=== PATIENT | male | born 1940 | race Caucasian/White ===

== ENCOUNTER → 2016-12-31 | Outpatient (CLI) | payer OTHER ==
[2016-12-31 12:22] LABS: LDL CHOLESTEROL,CALCULATED 76.6 mg/dL
== END ==
LOC: MOB LAB 10:12
DX: E78.5 Hyperlipidemia, unspecified (principal); Z72.0 Tobacco use
CPT/HCPCS: 36415; 80061

== ENCOUNTER 2017-02-12 10:30 | Inpatient (IN) | payer OTHER ==
[2017-02-12] MEDS ORDERED: MORPHINE SULFATE 4 MG/1 ML IVP ONE (10:55)
[2017-02-12] MEDS ORDERED: ONDANSETRON 4 MG/2 ML VIAL IVP ONE ×3 (10:55→12:30)
[2017-02-12] MEDS ORDERED: Sodium Chloride 0.9% 1,000 ML PRIMARY IV ONE (10:55)
--- NOTE | 2017-02-12 11:02 | PDOC ---
Gen Adult / Medical Screen HPI - General Chief Complaint: General Medical Stated Complaint: DIZZY, SHORT OF BREATH, RUQ PAIN Date Seen by Provider: 02/12/17 Time Seen by Provider: 10:57 Source: POSITIVE: Patient, Spouse Exam Limitations: POSITIVE: No limitations Nurse's Notes Reviewed & Considered: Yes - Indicators Temperature Between 95 and 101 Degrees: Yes Respirations Between 12 and 20: Yes Blood Pressure Between 100-165 (sys) and 60-100 (vallejo): Yes Pulse Range Between 60-105 (100 for age > 60 years): Yes Severe Pain (Greater than 5/10 Reported): No Chest or Abdominal Pain: Yes (chest pain radiating from epigastrium) Inability to Walk: No Pt Reports Active High Risk Cond. (TB/Hepatitis/HIV/Chemo): No Abnormal Mental Status: No - History of Present Illness Initial Comments: Patient comes in today with chief complaint of chest pain, shortness of breath, nausea, epigastric pain. His symptoms have been ongoing for approximately 2 weeks and progressively getting worse. 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 At this time he is 90% on 2 L nasal cannula. Denies any headache, he does have a cough, chest pain, and shortness of breath. He has epigastric pain with associated nausea but no vomiting. He denies any rashes. Denies any hematuria or dysuria. Body Location Affected: REPORTS: Chest, Abdomen Timing: REPORTS: Constant, Getting Worse Duration: >1 week Similar Symptoms Previously: No Recent Care Received: REPORTS: Denies Any Prior Injuries Related to Current Complaint?: No - Patient Home Medications Home Medications: Home Medications Calcium Carb/Vit D3/Minerals [Caltrate-600 With Vit D Tab] 1 each PO DAILY 09/17 Reubens-3 Fatty Acids/Fish Oil [Fish Oil 1,200 Mg Softgel] 1 each PO DAILY Aspirin [Adult Low Dose Aspirin Ec] 1 tab PO DAILY #30 tab 08/24/14 Multivit-Min/FA/Lycopene/Lut [Centrum Silver Tablet] 1 tab PO DAILY #30 tab Lisinopril 1 tab PO DAILY #90 tab 08/09/16 Pravastatin Sodium [Pravachol] 1 tab PO QD #30 tab 10/03/16 Carvedilol [Coreg] 1 tab PO BID #180 tab 01/27/17 Metformin HCl 1 tab PO BID #180 tab 01/27/17 Cyanocobalamin (Vitamin B-12) [B-12] 1,000 mcg PO DAILY 02/12/17 - Patient Allergies Allergies/Adverse Reactions: Allergies Allergy/AdvReac Type Severity Reaction Status Date / Time hydrocodone AdvReac Intermediate VOMITING Verified 02/12/17 10:40 Past Medical History - heen HEENT History: Denies History, Dentures/Partials Additional HEENT History: RIGHT EAR TUBE 2 YEARS AGO Cardiovascular History: Arrhythmia Additional Cardiovasular History: OCCASIONAL PVC'S Respiratory History: Denies History Gastrointestinal History: GERD Genitourinary History: Denies History Endocrine History: Denies History Musculoskeletal History: Back Injury Prosthesis or Implant: No Additional Musculoskeletal History: FEET NUMB AND PAINFULL "ALL THE TIME" NECK INJURY 30 YEARS AGO HAS SOME NECK ACHE AT TIMES. Neurological History: Denies History Blood Disorders: Denies History Psychiatric History: Denies History History of Sexually Transmitted Diseases: No Cancer History: Denies History History of Other Communicable Diseases: No Alcohol Use: None Substance Use Type: None Anesthesia Reactions: No Malignant Hyperthermia: No ROS - Limitations ROS Limitations: No Limitations Constitution: REPORTS: Fever (Low-grade tactile) Cardiovascular: REPORTS: Chest Pain Respiratory: REPORTS: Cough Non Productive, Hurts To Breathe, Shortness Of Breath Neurological: REPORTS: Dizziness Gastrointestinal: REPORTS: Abdominal Pain, Nausea Endocrine: REPORTS: Denies Symptoms Musculoskeletal: REPORTS: Muscle Aches Genitourinary: REPORTS: Denies Symptoms Eyes: REPORTS: Denies Symptoms ENT: REPORTS: Denies Symptoms Skin: REPORTS: Denies Skin Symptoms Lympathic: REPORTS: Denies Lympathic Symptoms Immunologic: POSITIVE: Denies Symptoms Psychiatric: POSITIVE: Denies Psych Symptoms Gen Adult/Medical Screen Exam - General Appearance General Appearance: POSITIVE: Alert, Cooperative, No Acute Distress, No Evidence of Trauma - HEENT HEENT: POSITIVE: Head Inspection Nml, Eyes Inspection Nml, Ears Inspection Nml, Nose Inspection Nml, Oral/Dental Inspect. Nml, Pharynx Inspect. Nml, PERRL, EOMI - Pupils Pupil Size: 4 mm: Bilateral - Neck Neck: POSITIVE: Normal Inspection, Thyroid Normal - Respiratory Respiratory: POSITIVE: No Respiratory Distress, Breath Sounds Normal, Chest Non- Tender - Cardiovascular Cardiovascular: POSITIVE: Regular Rate & Rhythm, No Murmur, No Gallop, PMI Normal Peripheral Pulses: Radial (L): 2+ - Abdomen Abdomen: Soft: (All Quadrants), Normal Bowel Sounds: (All Quadrants), No Splenomegaly: (All Quadrants), No Hepatomegaly: (All Quadrants), Tenderness Noted: (RUQ), (LUQ) - Back Back: POSITIVE: Normal Inspection - Neurological / Psychological Mental Status: POSITIVE: Mood Normal, Affect Normal Orientation: POSITIVE: Oriented x 3 - Skin Skin: POSITIVE: Normal Color, Warm, Dry, No Rash - Extremities Extremity: Non-Tender: (All Extremities), Normal ROM: (All Extremities), Edema / Swelling: (RLE), (LLE) (+2 pitting edema present bilaterally in his lower extremities) Procedures - Laceration/Wound Repair Did patient have a laceration repair: No Gen Adlt/Medical Scrn Progress - Results Reviewed by me Xrays/CTs/US Reviewed by me: Yes Discussed with Radiologist: Yes Lab Results Reviewed: Yes Lab Results:: Laboratory Results 02/12/17 02/12/17 02/12/17 Range/Units 10:47 10:57 12:07 WBC 8.35 (4.8-10.8) 10^3/uL RBC 5.02 (4.70-6.10) 10^6/uL Hgb 15.1 (14.0-18.0) g/dL Hct 45.3 (42.0-52.0) % MCV 90.2 H (80-90) FL MCH 30.1 (27-31) PG MCHC 33.3 (33-37) g/dL RDW Std Deviation 49.4 (39-50) fL RDW Coeff of Chandu 15.4 H (11.5-14.5) % Plt Count 195 (140-350) 10*3/uL MPV 10.6 (7.4-12.2) FL Immature Gran % (Auto) 0.1 (0-5) % Neut % (Auto) 68.4 (50-80) % Lymph % (Auto) 24.1 (10-50) % [place] % (Auto) 5.9 (5-15) % Eos % (Auto) 1.0 (0-8) % Baso % (Auto) 0.5 (0-1) % Immature Gran # (Auto) 0.01 10*3/UL Neut # (Auto) 5.72 10*3/UL Lymph # (Auto) 2.01 10*3/uL [place] # (Auto) 0.49 (0.3-0.8) 10*3/UL Eos # (Auto) 0.08 10*3/UL Baso # (Auto) 0.04 10*3/UL WBC Morphology Comment Normal morphology (NORM) Plt Morphology Comment Normal morphology (NORM) RBC Morph Comment Normal morphology (NORM) PT 10.8 (9.7-11.4) secs INR 1.05 (0.00-5.90) N/A Sodium 138 (135-145) meq/L Potassium 4.7 (3.8-5.2) meq/L Chloride 100 (98-112) meq/L Carbon Dioxide 25 (23-33) meq/L Anion Gap 13 (5-20) BUN 33 H (7-22) mg/dL Creatinine 1.3 (0.70-1.50) mg/dL Estimated GFR (>60 ml/min/1.73m(2)) BUN/Creatinine Ratio 25.38 H (6-20) Glucose 165 H (78-110) mg/dL Calculated Osmolality 296.0 H (267-292) mOsm/kg Calcium 9.5 (8.7-10.7) mg/dL Magnesium 1.9 (1.6-2.4) mg/dL Total Bilirubin 0.5 (0.3-1.2) mg/dL AST 41 (21-57) IU/L ALT 43 (21-72) IU/L Alkaline Phosphatase 54 (38-126) IU/L Total Creatine Kinase 49 L (55-170) IU/L Troponin I 0.054 H 0.053 H (< 0.040) ng/mL C-Reactive Protein 2.2 H (0.0-0.9) mg/dL Total Protein 7.1 (6.1-8.0) g/dL Albumin 4.2 (3.5-4.8) g/dL Globulin 2.9 (2.50-4.10) g/dL Albumin/Globulin Ratio 1.40 (1.3-2.0) mg/g TSH 1.44 (0.2700-4.2000) uIU/mL EKG Interpretation:: POSITIVE: Normal Sinus Rhythm, Abnormal EKG (Q waves in leads 2, 3, aVF.) - Patient's Progress Pain Medication Addressed: POSITIVE: Yes Re-Examine Time: 13:49 Status: POSITIVE: Improved MDM / ED Course: Patient was examined, an IV started, blood drawn and sent to the lab for studies , radiographic examinations were obtained. Patient was taken to radiology and as he was laid down on the CT gurney he developed diaphoresis, abdominal discomfort, and vomiting. He vomited copious amounts. Repeat EKG and troponins were obtained at that time EKG showed no change from previous, troponin was 0.053. Findings: CT scan of his chest shows bilateral PE present. Troponin is bumped, consistent with troponin leak from pulmonary embolism. Next Assessment: Bilateral pulmonary embolisms. Elevated troponin indicating possible heart strain. Plan: Admission, Eliquis for anticoagulation, consider echocardiogram to evaluate for heart strain. - Consult Consult (If Yes, Name of Consulting MD & Time Called): Yes (Dr. Pressley, 13:44 Dr. Angela Matthews([facility]) advises no TPA.) Consulting MD will see pt:: POSITIVE: [facility] Admit Counseled: POSITIVE: Patient, Family, RE: Lab Results, RE: Radiology Results, RE : DX Patient Care Time - Estimated PCT Patient Care Time (In Minutes): 45 Vital Signs - Recent Vital Signs Vital Signs: Vital Signs (Last 8 hours) Temp Pulse Resp BP Pulse Ox 02/12/17 10:31 96.8 F 79 20 110/74 90 - VS Reviewed Vital Signs Reviewed: Yes Discharge Clinical Impression: Pulmonary embolism Discharge Disposition: Admit to Inpatient Condition: Stable Follow Up With: EDILBERTO BAUGH [Primary Care Provider] - Date Decision to Admit to Inpatient: 02/12/17 Time Decision to Admit to Inpatient: 13:44
[2017-02-12 11:04] LABS: BASOPHILS # (AUTO) 0.04 10*3/UL; BASOPHILS % (AUTO) 0.5 % (0-1); EOSINOPHILS # (AUTO) 0.08 10*3/UL; HEMATOCRIT 45.3 % (42.0-52.0); HEMOGLOBIN 15.1 g/dL (14.0-18.0); LYMPHOCYTES # (AUTO) 2.01 10*3/uL; MEAN CORPUSCULAR HEMOGLOBIN 30.1 PG (27-31); MEAN CORPUSCULAR HGB CONC 33.3 g/dL (33-37); MEAN CORPUSCULAR VOLUME 90.2 FL (80-90); MEAN PLATELET VOLUME 10.6 FL (7.4-12.2); MONOCYTES # (AUTO) 0.49 10*3/UL (0.3-0.8); MONOCYTES % (AUTO) 5.9 % (5-15); NEUTROPHILS # (AUTO) 5.72 10*3/UL; NEUTROPHILS % (AUTO) 68.4 % (50-80); RED BLOOD COUNT 5.02 10^6/uL (4.70-6.10)
[2017-02-12 11:05] LABS: PLATELET MORPHOLOGY COMMENT NORMAL MORPHOLOGY (NORM); RBC MORPHOLOGY COMMENT NORMAL MORPHOLOGY (NORM); WBC MORPHOLOGY COMMENT NORMAL MORPHOLOGY (NORM)
[2017-02-12 11:13] LABS: BUN/CREATININE RATIO 25.38 (6-20); C-REACTIVE PROTEIN 2.2 mg/dL (0.0-0.9); CALCIUM 9.5 mg/dL (8.7-10.7); MAGNESIUM 1.9 mg/dL (1.6-2.4); SERUM ALBUMIN 4.2 g/dL (3.5-4.8)
--- NOTE | 2017-02-12 11:57 | EKG ---
[address] [address] Measurements Intervals [place] Rate: 70 P: 69 MD: 174 QRS: -82 QRSD: 95 T: 48 QT: 396 QTc: 416 Interpretive Statements SINUS RHYTHM INDETERMINATE AXIS POSSIBLE INFERIOR MYOCARDIAL INFARCTION [borderline for 40+ ms Q WAVE AND/OR ST/T ABNORMALITY IN II/aVF], PROBABLY OLD No previous ECG available for comparison Electronically Signed On 02-13-17 08:08:54 MDT by Dameon Bird MD [id number]
[2017-02-12] MEDS ORDERED: Prochlorperazine Edisylate Inj 10mg/2ml vial IVP ONE (12:30)
--- NOTE | 2017-02-12 13:42 | EKG ---
[address] [place] [address] Measurements Intervals [place] Rate: 70 P: 68 [place]: 178 QRS: 254 QRSD: 93 T: 47 QT: 389 QTc: 410 Interpretive Statements SINUS RHYTHM INDETERMINATE AXIS LEFT POSTERIOR FASCICULAR BLOCK [QRS AXIS > 109, INFERIOR Q] POSSIBLE INFERIOR MYOCARDIAL INFARCTION [35 ms Q WAVE IN II/aVF], PROBABLY OLD Compared to ECG 02/12/2017 10:55:56 Left posterior fascicular block now present Myocardial infarct finding still present Electronically Signed On 02-13-17 08:09:44 MDT by Dameon Bird MD [id number]
--- NOTE | 2017-02-12 13:49 | DI ---
CT ANGIOGRAM OF THE CHEST, 02/12/2017 10:55 AM : Clinical History: Shortness of breath. Previous Exam: None at this facility. Scans are performed from the base of the neck to the lower lung bases following IV administration of 60 mL of Isovue 300. Proprietary automated bolus tracking software was used to verify the timing of t he injection. The base of the neck and thoracic inlet are normal. There are no abnormal axillary, supraclavicular, mediastinal, or hilar nodes. The heart is normal. Calcifications are present in the proximal third of the LAD in the proximal portions of the left circumflex artery and the right coronary artery. There is no pulmonary arterial hypertension, but there are clots present in the distal portion of the right pulmonary artery with extension into branches to the right lower lobe. Clots are also present in bra nches to the right middle lobe and the right upper lobe. On the left side, clots are present in branc hes to the left lower lobe in the lingular segment. There are no pleural-based infiltrates to indicat e this patient has a pulmonary infarct. There are no pleural effusions or pulmonary nodules. READIN. There is acute pulmonary embolism involving all lobes in the right lung and in the lingular segme nt and lower lobe in the left lung. There is no pulmonary arterial hypertension and there are no pulm onary infarcts. 2. Coronary artery disease manifested by calcifications in the LAD, left circumflex artery, and the right coronary artery. Comment: Prior to scanning, this patient became quite nauseated and diaphoretic and experienced vomit ing. The emergency room physician responded to the CT scan room and evaluated the patient before this study and the followup CT scan of the abdomen and pelvis were performed.
--- NOTE | 2017-02-12 14:00 | DI ---
CT ABDOMEN SCAN WITH IV CONTRAST, 02/12/2017 10:55 AM : Clinical History: Epigastric pain. Previous Exam: None at this facility. Scans are performed from the lower lung bases through the liver and kidneys with IV contrast. This is the same bolus of contrast used for the CT angiogram of the chest. The lung bases are clear. The liver is normal. The gallbladder is grossly normal. There is a hiatal h ernia. There is no abnormality of the spleen, pancreas, and adrenal glands. Both kidneys are normal i n size, shape, position and contour. There is no hydronephrosis or hydroureter. No renal or ureteral calculi are present. There are no abnormal retrocrural or periaortic nodes. No ascites is present. READING: Except for the hiatal hernia, the CT abdomen scan is normal. CT PELVIS SCAN WITH IV CONTRAST, 02/12/2017 10:55 AM: Clinical History: See above. Previous Exam: None at this facility. Scans are performed from just superior to the umbilicus to the symphysis pubis with IV contrast. This is the same bolus of contrast used for the CT scans of the chest and abdomen. Scans through the lower abdomen and pelvis show no masses or abnormal fluid collections. There is no adenopathy. The appendix is normal. The small bowel, terminal ileum, and ileocecal valve are normal. The colon is also normal. There are no hernias. This patient has a fusiform infrarenal aortic aneurys m that has been treated with percutaneously inserted aortic and common iliac stents. The aortic stent has a mural thrombus within it. Both common iliac stents are patent and the proximal portion of the right common iliac stent has a small mural thrombus. There is a small mural thrombus in the midportio n of the left common iliac stent. There is marked prostatic enlargement. READIN. Status post percutaneously placed aortobiiliac stents. 2. Marked prostatic hypertrophy.
[2017-02-12] MEDS: Apixaban 5 MG TABLET PO ONE ×2 (14:15→14:50)
[2017-02-12] MEDS ORDERED: NORMAL SALINE 10 ML SYRINGE FLUSH IVP PRN (15:34)
[2017-02-12] MEDS ORDERED: LIDOCAINE W/ SODIUM BICARB 0.5 ML SYR SUBD PRN (15:34)
[2017-02-12] MEDS ORDERED: ONDANSETRON 4 MG/2 ML VIAL IVP PRN (15:34)
[2017-02-12] MEDS ORDERED: CALCIUM CARBONATE 500 MG (TUMS) CHEWABLE TABLET PO PRN (15:34)
[2017-02-12] MEDS ORDERED: ACETAMINOPHEN 325 MG TABLET PO PRN (15:34)
[2017-02-12] MEDS: NICOTINE 14 MG /DAY PATCH TRANSDERM SCH (19:06)
--- NOTE | 2017-02-12 19:41 | PDOC ---
History and Physical - History of Present Illness Date and Time of Service: 02/12/2017, 1630 Chief Complaint: shortness of breath History of Present Illness: This is a 76 YO male that has COPD, vascular disease, and is a smoker, who comes in with shortness of breath, starting about two weeks ago. No fever or chills. No chest pain, but patient did complain of soreness. The patient has never had this type of shortness of breath. He is not normally on oxygen but was found to be hypoxic in the urgent care or open access clinic today and in the emergency room. Initial troponin was slightly elevated, and a CT scan of the chest was positive for bilateral pulmonary emboli. The patient has not had any recent surgery. He has had colonoscopies in the past but apparently has not had one for some time. His PSA was screen last year and it was normal. No interventions were tried prior to coming to the hospital for evaluation although his noted that she tried to get him in over the last 3 days with prompts. The patient states that oxygen has helped the shortness of breath. The patient also developed some epigastric or midepigastric pain. A CT scan of the abdomen and pelvis was nonrevealing of any pathology. Past Medical History Medical History: 1. COPD. 2. Peripheral vascular disease status post aortobiiliac graft placement. 3. GERD. 4. Hypertension. 5. Diabetes mellitus type II, seemingly well controlled. 6. BPH with markedly enlarged prostate. 7. Hyperlipidemia Surgical History: 1. Atrhoscopic knee surgery bilaterally. 2. Right olecranon bursectomy several years ago, with scar tissue noted on exam. 3. Tonsillectomy at age 8. 4. Aortobiiliac graft placement (endovascular repair) Pertinent Family History: Significant for heart disease and for diabetes. Past Social History: for over 40 years. Had 4 children and 2 stepchildren. All are described as healthy. Retired and lives here in [place] with his . Does not drink alcohol, but does smoke. He states he's cut back on his smoking amount. Tobacco Use: Current Every Day Smoker Substance Use Type: None Alcohol Use: None Medication / Allergies Home Medications: Home Medications Medication Instructions Recorded Confirmed Type Calcium Carb/Vit D3/Minerals 1 each PO DAILY 09/17/11 02/12/17 History [Caltrate-600 With Vit D Tab] [place]-3 Fatty Acids/Fish Oil [Fish 1 each PO DAILY 05/17/13 02/12/17 History Oil 1,200 Mg Softgel] Aspirin [Adult Low Dose Aspirin Ec] 1 tab PO DAILY #30 tab 08/24/14 02/12/17 Clinic Multivit-Min/FA/Lycopene/Lut 1 tab PO DAILY #30 tab 08/24/14 02/12/17 Clinic [Centrum Silver Tablet] Lisinopril 1 tab PO DAILY #90 tab 08/09/16 02/12/17 Clinic Pravastatin Sodium [Pravachol] 1 tab PO QD #30 tab 10/03/16 02/12/17 Clinic Carvedilol [Coreg] 1 tab PO BID #180 tab 01/27/17 02/12/17 Clinic Metformin HCl 1 tab PO BID #180 tab 01/27/17 02/12/17 Clinic Cyanocobalamin (Vitamin B-12) 1,000 mcg PO DAILY 02/12/17 02/12/17 History [B-12] Allergies/Adverse Reactions: Allergies Allergy/AdvReac Type Severity Reaction Status Date / Time hydrocodone AdvReac Intermediate VOMITING Verified 02/12/17 19:05 morphine AdvReac Intermediate VOMITING Verified 02/12/17 19:05 Review of Systems - Review of Systems All Systems: Reviewed & No Additional Complaints Except as Stated (I did a 12 point review systems and it was negative other than that discussed in the history of present illness and that below.) - Constitutional Constitutional: REPORTS: Fatigue, Malaise, Weakness (Has felt some weakness and fatigue over the past couple of weeks with the shortness of breath.) - Cardiovascular Cardiovascular: REPORTS: Negative System Review - Gastrointestinal Gastrointestinal / Abdominal: REPORTS: Abdominal Pain (Epigastric) - Genitourinary Genitourinary: REPORTS: Hesitant Stream, Decreased Stream - Musculoskeletal Musculoskeletal: REPORTS: Other (Joint pains on occasion.) - Hematlogic / Lymphatic Hematologic / Lymphatic: DENIES: Negative System Review, Easy Bleeding/Bruising , Swollen Glands, Sickle Cell, Thalassemia, Pallor, Orthostasis, History of Tranfusions, Lymphoma, Other, See HPI - Neurological Neurologic: DENIES: Negative System Review, Headache, Numbness/Paresthesia, Tremors, Weakness, Seizures, Head Trauma, LOC, Dizziness, Confusion, Memory Loss , Difficulty Walking, Incoordination, Other, See HPI Exam - Vitals Vital Signs: Vital Signs Vital Signs - Last Taken Temperature 97.2 F 02/12/17 20:27 Pulse Rate 66 02/12/17 20:27 Respiratory Rate 22 02/12/17 20:27 Blood Pressure 102/59 02/12/17 20:27 Pulse Ox 94 02/12/17 20:27 Currently on 2-3 L per nasal cannula. - General General Appearance: POSITIVE: No Acute Distress, Cooperative - Head Head Exam: POSITIVE: Normal Inspection, Normocephalic, Atraumatic - Eye Eye Exam: POSITIVE: No Scleral Icterus - ENT ENT Exam: POSITIVE: Mucous Membranes Moist - Neck Neck Exam: POSITIVE: Normal Inspection, No Tenderness, No Thyromegaly - Respiratory Respiratory Exam: POSITIVE: Breathing Non Labored, Normal to Percussion and Palpation, Coarse Breath Sounds - Cardiovascular Cardiovascular Exam: POSITIVE: RRR, No Murmur, No Clicks, No Gallops, No Rubs, No JVD - GI/Abdominal GI/Abdominal Exam: POSITIVE: Normal Bowel Sounds, Non Tender, Non Distended, Soft - Rectal Rectal Exam: POSITIVE: Deferred - External Exam: POSITIVE: Deferred Exam: POSITIVE: Deferred - Extremities Extremities Exam: POSITIVE: No Edema Present, No Cyanosis Present, Clubbing Present (In the digits) - Back Back Exam: POSITIVE: Normal Inspection, No CVA Tenderness - Neurological Neurological Exam: POSITIVE: Alert, Oriented x 3, No Facial Droop, Speech Intact / Clear, Moves All Extremities Equally - Psychiatric Psychiatric Exam: POSITIVE: Normal Affect, Normal Mood - Integumentary Integumentary Exam: POSITIVE: Normal Color, Warm, Dry, Intact - Central Line Examination Central Line Present on Admission: No Results - Labs CBC and BMP: 02/12/17 10:47 02/12/17 10:47 Labs - Last 24 Hours: Laboratory Results 02/12/17 02/12/17 02/12/17 Range/Units 10:47 10:57 12:07 WBC 8.35 (4.8-10.8) 10^3/uL RBC 5.02 (4.70-6.10) 10^6/uL Hgb 15.1 (14.0-18.0) g/dL Hct 45.3 (42.0-52.0) % MCV 90.2 H (80-90) FL MCH 30.1 (27-31) PG MCHC 33.3 (33-37) g/dL RDW Std Deviation 49.4 (39-50) fL RDW Coeff of Chandu 15.4 H (11.5-14.5) % Plt Count 195 (140-350) 10*3/uL MPV 10.6 (7.4-12.2) FL Immature Gran % (Auto) 0.1 (0-5) % Neut % (Auto) 68.4 (50-80) % Lymph % (Auto) 24.1 (10-50) % [place] % (Auto) 5.9 (5-15) % Eos % (Auto) 1.0 (0-8) % Baso % (Auto) 0.5 (0-1) % Immature Gran # (Auto) 0.01 10*3/UL Neut # (Auto) 5.72 10*3/UL Lymph # (Auto) 2.01 10*3/uL [place] # (Auto) 0.49 (0.3-0.8) 10*3/UL Eos # (Auto) 0.08 10*3/UL Baso # (Auto) 0.04 10*3/UL WBC Morphology Comment Normal morphology (NORM) Plt Morphology Comment Normal morphology (NORM) RBC Morph Comment Normal morphology (NORM) PT 10.8 (9.7-11.4) secs INR 1.05 (0.00-5.90) N/A Sodium 138 (135-145) meq/L Potassium 4.7 (3.8-5.2) meq/L Chloride 100 (98-112) meq/L Carbon Dioxide 25 (23-33) meq/L Anion Gap 13 (5-20) BUN 33 H (7-22) mg/dL Creatinine 1.3 (0.70-1.50) mg/dL Estimated GFR (>60 ml/min/1.73m(2)) BUN/Creatinine Ratio 25.38 H (6-20) Glucose 165 H (78-110) mg/dL Calculated Osmolality 296.0 H (267-292) mOsm/kg Calcium 9.5 (8.7-10.7) mg/dL Magnesium 1.9 (1.6-2.4) mg/dL Total Bilirubin 0.5 (0.3-1.2) mg/dL AST 41 (21-57) IU/L ALT 43 (21-72) IU/L Alkaline Phosphatase 54 (38-126) IU/L Total Creatine Kinase 49 L (55-170) IU/L Troponin I 0.054 H 0.053 H (< 0.040) ng/mL C-Reactive Protein 2.2 H (0.0-0.9) mg/dL Total Protein 7.1 (6.1-8.0) g/dL Albumin 4.2 (3.5-4.8) g/dL Globulin 2.9 (2.50-4.10) g/dL Albumin/Globulin Ratio 1.40 (1.3-2.0) mg/g TSH 1.44 (0.2700-4.2000) uIU/mL - EKG Data -: EKG Interpreted by Me Rate: Normal EKG Shows Normal: Sinus Rhythm - EKG Data EKG Interpretation: Nonspecific ST-T Wave Changes (Noted in V1 and V2) - Imaging Status: Image Reviewed by Me (I looked at the CT scan of the chest, abdomen, and pelvis. On the chest CT scan, there is pulmonary emboli, and I can pick out a few of those on the study on the right side. There is no infiltrate. The CT scan of the abdomen and pelvis showed an enlarged prostate. The endovascular graft was noted as well.) Assessment and Plan - Patient Problems (1) Pulmonary embolism Current Visit: Yes Status: Acute Qualifiers: Pulmonary embolism type: other Chronicity: acute Acute cor pulmonale presence: without acute cor pulmonale Qualified Description: Other acute pulmonary embolism without acute cor pulmonale Qualifier Code( s): (I26.99) Other pulmonary embolism without acute cor pulmonale (2) COPD (chronic obstructive pulmonary disease) Current Visit: Yes Status: Acute Qualifiers: COPD type: emphysema Emphysema type: unspecified Qualified Description: Pulmonary emphysema, unspecified emphysema type Qualifier Code(s): (J43.9) Emphysema, unspecified (3) GERD (gastroesophageal reflux disease) Current Visit: Yes Status: Acute Qualifiers: Esophagitis presence: without esophagitis Qualified Description: Gastroesophageal reflux disease without esophagitis Qualifier Code(s): ( K21.9) Gastro-esophageal reflux disease without esophagitis (4) Tobacco abuse Current Visit: Yes Status: Acute (5) Peripheral vascular disease Current Visit: Yes Status: Acute (6) Diabetes mellitus type II, controlled Current Visit: Yes Status: Acute Qualifiers: Diabetes mellitus complication status: without complication Diabetes mellitus senior care insulin use: without senior care use Qualified Description : Controlled type 2 diabetes mellitus without complication, without long-term current use of insulin Qualifier Code(s): (E11.9) Type 2 diabetes mellitus without complications (7) Hypertension Current Visit: Yes Status: Acute Qualifiers: Hypertension type: essential hypertension Qualified Description: Essential hypertension Qualifier Code(s): (I10) Essential (primary) hypertension (8) Hyperlipidemia Current Visit: Yes Status: Acute Qualifiers: Hyperlipidemia type: mixed hyperlipidemia Qualified Description: Mixed hyperlipidemia Qualifier Code(s): (E78.2) Mixed hyperlipidemia - Assessment / Plan Additional Assessment/Plan Details: The patient has a pulmonary embolism severity index score of 117, class for pulmonary emboli with 30 day mortality of 4-11.4%. He warrants inpatient monitoring, is mildly hypoxic and is requiring oxygen, and requires anticoagulant therapy. I discussed anticoagulant therapy with the patient and his , in depth regarding Coumadin versus Xarelto versus Eliquis, including all risks and benefits, risks being bleeding complications and possible pitfalls of not being able to reverse bleeding with antidotes, and benefits of treatment of blood clot , lack of drug interactions, and ease of therapy in terms of lab monitoring. Based on this discussion the patient chooses eliquis, and tomorrow we will call in prescription for this and Xarelto to find out which one his secondaries and/ or other coverages might be able to provide for. Oxygen as necessary. Home medications but hold metformin. Insulin for correction dose here in the hospital and hold metformin for at least 48-72 hours given the contrast CT scan study. Given the epigastric pain, presence of gallbladder, I will go ahead and get an ultrasound in the morning to look at this more carefully. The above plan was discussed with the patient in detail and both the patient and his agreed. Photo / Body Diagrams - Uploaded Photos Uploaded Photos:
[2017-02-12] MEDS: Apixaban 5 MG TABLET PO SCH (20:23)
[2017-02-12] MEDS: Pravastatin Tab 40 MG TAB PO SCH ×2 (20:23→20:27)
[2017-02-12] MEDS: CARVEDILOL 12.5 MG TABLET PO SCH (20:23)
[2017-02-12] MEDS ORDERED: DEXTROSE 31 GM GEL PO PRN (20:43)
[2017-02-12] MEDS ORDERED: Glucagon Inj Vial 1 MG/ML VIAL IM PRN (20:43)
[2017-02-12] MEDS ORDERED: DEXTROSE 50%-WATER SYRINGE 50 ML SYRINGE IVP PRN (20:43)
[2017-02-12] MEDS ORDERED: Insulin Sliding Scale Protocol SUBCUT PRN (20:43)
[2017-02-12] MEDS: Insulin Lispro Flexpen 300 UNIT/3 ML INSULN.PEN SUBCUT SCH (21:57)
[2017-02-13 05:08] LABS: BASOPHILS # (AUTO) 0.03 10*3/UL; BASOPHILS % (AUTO) 0.4 % (0-1); EOSINOPHILS # (AUTO) 0.13 10*3/UL; EOSINOPHILS % (AUTO) 1.6 % (0-8); HEMATOCRIT 41.9 % (42.0-52.0); HEMOGLOBIN 13.6 g/dL (14.0-18.0); MEAN CORPUSCULAR HGB CONC 32.5 g/dL (33-37); MEAN CORPUSCULAR VOLUME 92.5 FL (80-90); MEAN PLATELET VOLUME 11.1 FL (7.4-12.2); MONOCYTES # (AUTO) 0.57 10*3/UL (0.3-0.8); MONOCYTES % (AUTO) 6.9 % (5-15); NEUTROPHILS # (AUTO) 5.18 10*3/UL; RED BLOOD COUNT 4.53 10^6/uL (4.70-6.10)
[2017-02-13 05:13] LABS: PLATELET MORPHOLOGY COMMENT NORMAL MORPHOLOGY (NORM); RBC MORPHOLOGY COMMENT NORMAL MORPHOLOGY (NORM); WBC MORPHOLOGY COMMENT NORMAL MORPHOLOGY (NORM)
[2017-02-13 05:23] LABS: BUN/CREATININE RATIO 27.5 (6-20); CALCIUM 9.6 mg/dL (8.7-10.7)
[2017-02-13] MEDS: Insulin Lispro Flexpen 300 UNIT/3 ML INSULN.PEN SUBCUT SCH ×4 (07:19→20:31)
[2017-02-13] MEDS ORDERED: CYANOCOBALAMIN 1000 MCG PO SCH (09:00)
[2017-02-13] MEDS: CARVEDILOL 12.5 MG TABLET PO SCH ×2 (11:11→20:30)
[2017-02-13] MEDS: Apixaban 5 MG TABLET PO SCH ×2 (11:11→20:29)
[2017-02-13] MEDS: LISINOPRIL 20 MG TABLET PO SCH (11:11)
[2017-02-13] MEDS: ASPIRIN EC 81 MG TABLET PO SCH (11:11)
--- NOTE | 2017-02-13 11:37 | DI ---
GALLBLADDER AND LIVER ULTRASOUND, 02/13/2017 7:00 AM: Clinical History: Epigastric pain. Previous Exam: None at this facility. Technique: Scans are performed through the right upper quadrant in multiple projections. The patient was rolled from side to side and the gallbladder was balloted with the probe to facilitate visualizat ion of small gallstones. The gallbladder is well distended and has increased wall thickness at 4 mm, and the gallbladder wall is also echogenic. These findings are suspicious for acalculus chronic cholecystitis. There is no Mur phy's sign. The common bile duct measures 4 mm. The pancreas is obscured by bowel gas. There is a tra ce amount of fluid in [place] spell which and surrounding the liver. The visualized portions of the l iver, right kidney, and IVC are normal. The proximal abdominal aorta has a normal caliber but there i s an aneurysm of the distal abdominal aorta with presence of a vascular stent. The aneurysm has AP an d transverse diameters of about 45 mm at the level of the stent. Readin. No gallstones are visualized but there is thickening of the gallbladder wall with increased echog enicity suggesting chronic acalculus cholecystitis. If further evaluation is required, consider a HID A scan with fatty meal challenge. 2. There is a very small amount of ascites. 3. The liver, right kidney, and IVC are normal. There is an aortic aneurysm with a stent present.
--- NOTE | 2017-02-13 15:54 | PDOC(PROG) ---
Date and Time of Service: 02/13/2017, 1555 Interval History: no chest pain, less short of breath. desaturates when he is sleeping. Willing to do eliquis despite cost. no nausea or vomiting. Objective : Data - Labs CBC and BMP: 02/13/17 04:23 02/13/17 04:23 Labs - Last 24 Hours: Laboratory Results 02/13/17 Range/Units 04:23 WBC 8.23 (4.8-10.8) 10^3/uL RBC 4.53 L (4.70-6.10) 10^6/uL Hgb 13.6 L (14.0-18.0) g/dL Hct 41.9 L (42.0-52.0) % MCV 92.5 H (80-90) FL MCH 30.0 (27-31) PG MCHC 32.5 L (33-37) g/dL RDW Std Deviation 49.3 (39-50) fL RDW Coeff of Chandu 15.3 H (11.5-14.5) % Plt Count 200 (140-350) 10*3/uL MPV 11.1 (7.4-12.2) FL Immature Gran % (Auto) 0.2 (0-5) % Neut % (Auto) 63.0 (50-80) % Lymph % (Auto) 27.9 (10-50) % [place] % (Auto) 6.9 (5-15) % Eos % (Auto) 1.6 (0-8) % Baso % (Auto) 0.4 (0-1) % Immature Gran # (Auto) 0.02 10*3/UL Neut # (Auto) 5.18 10*3/UL Lymph # (Auto) 2.30 10*3/uL [place] # (Auto) 0.57 (0.3-0.8) 10*3/UL Eos # (Auto) 0.13 10*3/UL Baso # (Auto) 0.03 10*3/UL WBC Morphology Comment Normal morphology (NORM) Plt Morphology Comment Normal morphology (NORM) RBC Morph Comment Normal morphology (NORM) Sodium 137 (135-145) meq/L Potassium 5.0 (3.8-5.2) meq/L Chloride 102 (98-112) meq/L Carbon Dioxide 26 (23-33) meq/L Anion Gap 9 (5-20) BUN 33 H (7-22) mg/dL Creatinine 1.2 (0.70-1.50) mg/dL Estimated GFR (>60 ml/min/1.73m(2)) BUN/Creatinine Ratio 27.50 H (6-20) Glucose 123 H (78-110) mg/dL Calculated Osmolality 291.0 (267-292) mOsm/kg Calcium 9.6 (8.7-10.7) mg/dL Troponin I 0.040 (< 0.040) ng/mL - Imaging Ultrasound Status: Report Reviewed by Me (acalculous cholecystitis) Objective : Exam - General General Appearance: No Acute Distress, Cooperative Additional General Exam Details: Vital Signs - Last Taken Temperature 98.5 F 02/13/17 13:00 Pulse Rate 74 02/13/17 13:00 Respiratory Rate 20 02/13/17 13:00 Blood Pressure 148/72 02/13/17 13:00 Pulse Ox 94 02/13/17 13:00 - Eye Eye Exam: No Scleral Icterus - Respiratory Respiratory Exam: Clear to Auscultation - Bilaterally, Breathing Non Labored - Cardiovascular Cardiovascular Exam: RRR, No Murmur, No Clicks, No Gallops, No Rubs, No JVD - GI/Abdominal GI/Abdominal Exam: Normal Bowel Sounds, Non Tender, Non Distended, Soft Additional GI/Abdominal Exam Details: negative Hill sign - Extremities Extremities Exam: No Clubbing Present, No Edema Present, No Cyanosis Present - Neurological Neurological Exam: Alert, Oriented x 3, No Facial Droop, Speech Intact / Clear, Moves All Extremities Equally Assessment and Plan - Patient Problems (1) Pulmonary embolism Current Visit: Yes Status: Acute Qualifiers: Pulmonary embolism type: other Chronicity: acute Acute cor pulmonale presence: without acute cor pulmonale Qualified Description: Other acute pulmonary embolism without acute cor pulmonale Qualifier Code( s): (I26.99) Other pulmonary embolism without acute cor pulmonale (2) Acalculous cholecystitis Current Visit: Yes Status: Acute (3) COPD (chronic obstructive pulmonary disease) Current Visit: Yes Status: Acute Qualifiers: COPD type: emphysema Emphysema type: unspecified Qualified Description: Pulmonary emphysema, unspecified emphysema type Qualifier Code(s): (J43.9) Emphysema, unspecified (4) GERD (gastroesophageal reflux disease) Current Visit: Yes Status: Acute Qualifiers: Esophagitis presence: without esophagitis Qualified Description: Gastroesophageal reflux disease without esophagitis Qualifier Code(s): ( K21.9) Gastro-esophageal reflux disease without esophagitis (5) Tobacco abuse Current Visit: Yes Status: Acute (6) Peripheral vascular disease Current Visit: Yes Status: Acute (7) Diabetes mellitus type II, controlled Current Visit: Yes Status: Acute Qualifiers: Diabetes mellitus complication status: without complication 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 Qualified Description : Controlled type 2 diabetes mellitus without complication, without long-term current use of insulin Qualifier Code(s): (E11.9) Type 2 diabetes mellitus without complications (8) Hypertension Current Visit: Yes Status: Acute Qualifiers: Hypertension type: essential hypertension Qualified Description: Essential hypertension Qualifier Code(s): (I10) Essential (primary) hypertension (9) Hyperlipidemia Current Visit: Yes Status: Acute Qualifiers: Hyperlipidemia type: mixed hyperlipidemia Qualified Description: Mixed hyperlipidemia Qualifier Code(s): (E78.2) Mixed hyperlipidemia - Assessment / Plan Additional Assessment/Plan Details: I discussed with Dr. Contreras, and based on the patient's studies, no fever, try to keep patient on meds for PE for 6 months prior to cholecysectomy. continue eliquis BID for PE; may need to switch to xarelto if prior authorization not approved. check labs tomorrow get scheduled for sleep study. oxygen as necessary Photo / Body Diagrams - Uploaded Photos Uploaded Photos:
[2017-02-13] MEDS: NICOTINE 14 MG /DAY PATCH TRANSDERM SCH (18:00)
[2017-02-13] MEDS: Pravastatin Tab 40 MG TAB PO SCH (20:29)
[2017-02-14] MEDS: Insulin Lispro Flexpen 300 UNIT/3 ML INSULN.PEN SUBCUT SCH ×2 (07:01→11:27)
[2017-02-14 08:19] VITALS: RESP 22; TEMP 97.4
[2017-02-14] MEDS: LISINOPRIL 20 MG TABLET PO SCH (09:05)
[2017-02-14] MEDS: Apixaban 5 MG TABLET PO SCH (09:05)
[2017-02-14] MEDS: CARVEDILOL 12.5 MG TABLET PO SCH (09:05)
[2017-02-14] MEDS: ASPIRIN EC 81 MG TABLET PO SCH (09:05)
[2017-02-14] MEDS ORDERED: RIVAROXABAN 15 MG PO ONE (10:00)
--- NOTE | 2017-02-14 10:19 | DCSUMMARY ---
Hospitalization Summary Admit Date: 02/12/17 Discharge Date: 02/14/17 Primary Diagnosis:: acute pulmonary emboli, pulmonary hypertension Hospital Course: This very pleasant 76-year-old male with underlying history of COPD, tobacco use , hypertension, amongst other problems. He came in with acute shortness of breath that had been present for about 2 weeks and was admitted for further evaluation and management. He was found to have a pulmonary emboli throughout all lobes on the right side and one lobe on the left, and he was placed on eliquis initially. However, we could not find coverage with his insurance and could not assure that he be on the medication prior to discharge, so we opted to go to [facility] on the day of discharge. He felt that these medications overall would work much better than Coumadin given his life situation. He has tolerated that therapy well, no shortness breath was resolved within 24 hours of these medications. In terms of his COPD, I think he probably requires oxygen daily. We were able to titrate him to 2 L per nasal cannula prior to discharge with oxygen saturations at 97%. There were 84% on room air challenge. The patient's reports a lot of snoring and apneic episodes at nighttime, so we will order a sleep study to look for sleep apnea as a potential cause of right ventricular enlargement and pulmonary hypertension. This was noted by echocardiogram performed in the hospital of which I got a verbal report from cardiology from Matthew. The other issue the patient had during the hospital states that he had midepigastric pain and we did do an ultrasound and found a calculus cholecystitis. I spoke with Dr. Ortez, we would both prefer that we get the patient through at least 6 months of therapy for this pulmonary emboli and then look at cholecystectomy electively at that time. If pain persists or gets worse or continues or the patient develops symptoms of obstructive jaundice, dryness, then we can proceed with surgery sooner but would like to get more time under the patient's belt in terms of treatment for this pulmonary embolism first. I also think the patient would benefit from screening colonoscopy as he has had a history of colon polyps although remote. Given that the patient's symptoms have significantly improved, the resolution of shortness of breath with treatment for this pulmonary emboli and oxygen therapy, patient not having any complaints of chest pain, shortness breath, nausea or vomiting, or abdominal pain today, the patient can proceed home. Assessment and Plan: 1. As per discharge assessments noted 2. Disposition: Patient is discharged home. 3. Condition on discharge, stable and improved. 4. Diet: regular diet 5. Activities: resume normal activities, oxygen at all times 6. Follow-Up: 1. Dr. Gupta scheduled February [address] Ortez in 6 months 7. Medications at the Time of Discharge: Home Medications Medication Instructions Recorded Confirmed Type Calcium Carb/Vit D3/Minerals 1 each PO DAILY 09/17/11 02/12/17 History [Caltrate-600 with Vit D Tab] [place]-3 Fatty Acids/Fish Oil [Fish 1 each PO DAILY 05/17/13 02/12/17 History Oil 1,200 mg Softgel] Aspirin [Adult Low Dose Aspirin EC] 1 tab PO DAILY #30 tab 08/24/14 02/12/17 Clinic Multivit-Min/FA/Lycopene/Lut 1 tab PO DAILY #30 tab 08/24/14 02/12/17 Clinic [Centrum Silver Tablet] Lisinopril 1 tab PO DAILY #90 tab 08/09/16 02/12/17 Clinic Pravastatin Sodium [Pravachol] 1 tab PO QD #30 tab 10/03/16 02/12/17 Clinic Carvedilol [Coreg] 1 tab PO BID #180 tab 01/27/17 02/12/17 Clinic Metformin HCl 1 tab PO BID #180 tab 01/27/17 02/12/17 Clinic Cyanocobalamin (Vitamin B-12) 1,000 mcg PO DAILY 02/12/17 02/12/17 History [B-12] Nicotine 14mg Patch [Nicoderm CQ 1 patch TRANSDERM DAILY@1900 #30 02/14/17 Rx 14mg Patch] patch Rivaroxaban [Xarelto] 15 mg PO BID #42 tab 02/14/17 Rx Rivaroxaban [Xarelto] 20 mg PO DAILY #30 tablet 02/14/17 Rx 8. Time, care, counseling and coordination of care for this discharge is greater than 30 minutes. Exam - Vitals Vital Signs: Vital Signs Temperature 97.4 F Temperature Source Temporal Artery Scan Pulse Rate [Pulse Oximeter 56 Right] Pulse Rate 57 Respiratory Rate 22 Blood Pressure [Left Arm] 113/57 Blood Pressure [Right Arm] 108/64 Blood Pressure 91/52 Pulse Ox 97 Oxygen Flow Rate 4 Oxygen Delivery Method Nasal Cannula Height 6 ft Weight 180 lb 12.8 oz I turned the oxygen down to 2 L per nasal cannula and we still had oxygen saturations well on the 90% range so we will send him home on 2 L per nasal cannula. Room air challenge yesterday was 84%. - General General Appearance: POSITIVE: No Acute Distress, Cooperative - Eye Eye Exam: POSITIVE: No Scleral Icterus - Respiratory Respiratory Exam: POSITIVE: Clear to Auscultation - Bilaterally, Breathing Non Labored, Decreased Breath Sounds - Cardiovascular Cardiovascular Exam: POSITIVE: RRR, No Murmur, No Clicks, No Gallops, No Rubs, No JVD - GI/Abdominal GI/Abdominal Exam: POSITIVE: Normal Bowel Sounds, Non Tender, Non Distended, Soft - Extremities Extremities Exam: POSITIVE: No Edema Present, No Cyanosis Present, Clubbing Present (In the digits bilaterally) - Neurological Neurological Exam: POSITIVE: Alert, Oriented x 3, No Facial Droop, Speech Intact / Clear, Moves All Extremities Equally - Psychiatric Psychiatric Exam: POSITIVE: Normal Affect, Normal Mood Data Perinent Studies: Laboratory Results 02/12/17 02/12/17 02/12/17 Range/Units 10:47 10:57 12:07 WBC 8.35 (4.8-10.8) 10^3/uL RBC 5.02 (4.70-6.10) 10^6/uL Hgb 15.1 (14.0-18.0) g/dL Hct 45.3 (42.0-52.0) % MCV 90.2 H (80-90) FL MCH 30.1 (27-31) PG MCHC 33.3 (33-37) g/dL RDW Std Deviation 49.4 (39-50) fL RDW Coeff of Chandu 15.4 H (11.5-14.5) % Plt Count 195 (140-350) 10*3/uL MPV 10.6 (7.4-12.2) FL Immature Gran % (Auto) 0.1 (0-5) % Neut % (Auto) 68.4 (50-80) % Lymph % (Auto) 24.1 (10-50) % [place] % (Auto) 5.9 (5-15) % Eos % (Auto) 1.0 (0-8) % Baso % (Auto) 0.5 (0-1) % Immature Gran # (Auto) 0.01 10*3/UL Neut # (Auto) 5.72 10*3/UL Lymph # (Auto) 2.01 10*3/uL [place] # (Auto) 0.49 (0.3-0.8) 10*3/UL Eos # (Auto) 0.08 10*3/UL Baso # (Auto) 0.04 10*3/UL WBC Morphology Comment Normal morphology (NORM) Plt Morphology Comment Normal morphology (NORM) RBC Morph Comment Normal morphology (NORM) PT 10.8 (9.7-11.4) secs INR 1.05 (0.00-5.90) N/A Sodium 138 (135-145) meq/L Potassium 4.7 (3.8-5.2) meq/L Chloride 100 (98-112) meq/L Carbon Dioxide 25 (23-33) meq/L Anion Gap 13 (5-20) BUN 33 H (7-22) mg/dL Creatinine 1.3 (0.70-1.50) mg/dL Estimated GFR (>60 ml/min/1.73m(2)) BUN/Creatinine Ratio 25.38 H (6-20) Glucose 165 H (78-110) mg/dL Calculated Osmolality 296.0 H (267-292) mOsm/kg Calcium 9.5 (8.7-10.7) mg/dL Magnesium 1.9 (1.6-2.4) mg/dL Total Bilirubin 0.5 (0.3-1.2) mg/dL AST 41 (21-57) IU/L ALT 43 (21-72) IU/L Alkaline Phosphatase 54 (38-126) IU/L Total Creatine Kinase 49 L (55-170) IU/L Troponin I 0.054 H 0.053 H (< 0.040) ng/mL C-Reactive Protein 2.2 H (0.0-0.9) mg/dL Total Protein 7.1 (6.1-8.0) g/dL Albumin 4.2 (3.5-4.8) g/dL Globulin 2.9 (2.50-4.10) g/dL Albumin/Globulin Ratio 1.40 (1.3-2.0) mg/g TSH 1.44 (0.2700-4.2000) uIU/mL 02/13/17 Range/Units 04:23 WBC 8.23 (4.8-10.8) 10^3/uL RBC 4.53 L (4.70-6.10) 10^6/uL Hgb 13.6 L (14.0-18.0) g/dL Hct 41.9 L (42.0-52.0) % MCV 92.5 H (80-90) FL MCH 30.0 (27-31) PG MCHC 32.5 L (33-37) g/dL RDW Std Deviation 49.3 (39-50) fL RDW Coeff of Chandu 15.3 H (11.5-14.5) % Plt Count 200 (140-350) 10*3/uL MPV 11.1 (7.4-12.2) FL Immature Gran % (Auto) 0.2 (0-5) % Neut % (Auto) 63.0 (50-80) % Lymph % (Auto) 27.9 (10-50) % [place] % (Auto) 6.9 (5-15) % Eos % (Auto) 1.6 (0-8) % Baso % (Auto) 0.4 (0-1) % Immature Gran # (Auto) 0.02 10*3/UL Neut # (Auto) 5.18 10*3/UL Lymph # (Auto) 2.30 10*3/uL [place] # (Auto) 0.57 (0.3-0.8) 10*3/UL Eos # (Auto) 0.13 10*3/UL Baso # (Auto) 0.03 10*3/UL WBC Morphology Comment Normal morphology (NORM) Plt Morphology Comment Normal morphology (NORM) RBC Morph Comment Normal morphology (NORM) PT (9.7-11.4) secs INR (0.00-5.90) N/A Sodium 137 (135-145) meq/L Potassium 5.0 (3.8-5.2) meq/L Chloride 102 (98-112) meq/L Carbon Dioxide 26 (23-33) meq/L Anion Gap 9 (5-20) BUN 33 H (7-22) mg/dL Creatinine 1.2 (0.70-1.50) mg/dL Estimated GFR (>60 ml/min/1.73m(2)) BUN/Creatinine Ratio 27.50 H (6-20) Glucose 123 H (78-110) mg/dL Calculated Osmolality 291.0 (267-292) mOsm/kg Calcium 9.6 (8.7-10.7) mg/dL Magnesium (1.6-2.4) mg/dL Total Bilirubin (0.3-1.2) mg/dL AST (21-57) IU/L ALT (21-72) IU/L Alkaline Phosphatase (38-126) IU/L Total Creatine Kinase (55-170) IU/L Troponin I 0.040 (< 0.040) ng/mL C-Reactive Protein (0.0-0.9) mg/dL Total Protein (6.1-8.0) g/dL Albumin (3.5-4.8) g/dL Globulin (2.50-4.10) g/dL Albumin/Globulin Ratio (1.3-2.0) mg/g TSH (0.2700-4.2000) uIU/mL Patient Problems - Patient Problem List (1) Pulmonary embolism Current Visit: Yes Status: Acute Qualifiers: Pulmonary embolism type: other Chronicity: acute Acute cor pulmonale presence: without acute cor pulmonale Qualified Description: Other acute pulmonary embolism without acute cor pulmonale Qualifier Code( s): (I26.99) Other pulmonary embolism without acute cor pulmonale (2) Acalculous cholecystitis Current Visit: Yes Status: Acute (3) COPD (chronic obstructive pulmonary disease) Current Visit: Yes Status: Acute Qualifiers: COPD type: emphysema Emphysema type: unspecified Qualified Description: Pulmonary emphysema, unspecified emphysema type Qualifier Code(s): (J43.9) Emphysema, unspecified (4) GERD (gastroesophageal reflux disease) Current Visit: Yes Status: Acute Qualifiers: Esophagitis presence: without esophagitis Qualified Description: Gastroesophageal reflux disease without esophagitis Qualifier Code(s): ( K21.9) Gastro-esophageal reflux disease without esophagitis (5) Tobacco abuse Current Visit: Yes Status: Acute (6) Peripheral vascular disease Current Visit: Yes Status: Acute (7) Diabetes mellitus type II, controlled Current Visit: Yes Status: Acute Qualifiers: Diabetes mellitus complication status: without complication Diabetes mellitus termite control technician insulin use: without termite control technician use Qualified Description : Controlled type 2 diabetes mellitus without complication, without long-term current use of insulin Qualifier Code(s): (E11.9) Type 2 diabetes mellitus without complications (8) Hypertension Current Visit: Yes Status: Acute Qualifiers: Hypertension type: essential hypertension Qualified Description: Essential hypertension Qualifier Code(s): (I10) Essential (primary) hypertension (9) Hyperlipidemia Current Visit: Yes Status: Acute Qualifiers: Hyperlipidemia type: mixed hyperlipidemia Qualified Description: Mixed hyperlipidemia Qualifier Code(s): (E78.2) Mixed hyperlipidemia (10) Pulmonary hypertension Current Visit: Yes Status: Acute
[2017-02-14] MEDS ORDERED: RIVAROXABAN 15 MG PO SCH (21:00)
== END 2017-02-14 11:35 | disposition home or self-care (01) | DRG 176 ==
LOC: ER 10:30 → MED/SURG 14:34
PROVIDERS: ADMIT Family Medicine; ATTEND Family Medicine
DX: I26.99 Other pulmonary embolism without acute cor pulmonale (principal); R10.11 Right upper quadrant pain; R42 Dizziness and giddiness; I27.2 Other secondary pulmonary hypertension; K81.9 Cholecystitis, unspecified; J44.9 Chronic obstructive pulmonary disease, unspecified; K21.9 Gastro-esophageal reflux disease without esophagitis; Z72.0 Tobacco use; I73.9 Peripheral vascular disease, unspecified; E11.9 Type 2 diabetes mellitus without complications; I10 Essential (primary) hypertension; E78.5 Hyperlipidemia, unspecified
CPT/HCPCS: 36415; 71275; 74177; 76705; 80048; 80053; 82550; 82948; 83735; 84443; 84484; 85025; 85610; 86140; 93005; 93010; 93306; 94761; 96374; 96375; 96376; 99284; J0780; J2270; J2405; J7030

== ENCOUNTER → 2017-02-12 | Outpatient (CLI) | payer OTHER | LOC: MMPC 09:00 | DX: J44.1 Chronic obstructive pulmonary disease with (acute) exacerbation (principal); R09.02 Hypoxemia; Z99.81 Dependence on supplemental oxygen | CPT/HCPCS: 99212; G0463 ==

== ENCOUNTER → 2017-02-20 | Outpatient (CLI) | payer OTHER | LOC: SLEEP LAB 20:26 | DX: G47.33 Obstructive sleep apnea (adult) (pediatric) (principal); G47.34 Idiopathic sleep related nonobstructive alveolar hypoventilation | CPT/HCPCS: 95811 ==

== ENCOUNTER → 2017-02-24 | Outpatient (CLI) | payer OTHER | LOC: MMPC 11:11 | DX: I26.99 Other pulmonary embolism without acute cor pulmonale (principal); K21.9 Gastro-esophageal reflux disease without esophagitis; E11.9 Type 2 diabetes mellitus without complications; I10 Essential (primary) hypertension; E78.5 Hyperlipidemia, unspecified; J44.9 Chronic obstructive pulmonary disease, unspecified | CPT/HCPCS: 99213 ==

== ENCOUNTER → 2017-02-27 | Outpatient (CLI) | payer OTHER | LOC: SLEEP LAB 19:54 | DX: G47.33 Obstructive sleep apnea (adult) (pediatric) (principal); G47.34 Idiopathic sleep related nonobstructive alveolar hypoventilation; G47.31 Primary central sleep apnea; J44.9 Chronic obstructive pulmonary disease, unspecified | CPT/HCPCS: 95811 ==

== ENCOUNTER → 2017-03-12 | Outpatient (CLI) | payer OTHER | LOC: SLEEP LAB 20:57 | DX: G47.33 Obstructive sleep apnea (adult) (pediatric) (principal); G47.31 Primary central sleep apnea | CPT/HCPCS: 95810 ==

== ENCOUNTER → 2017-03-26 | Outpatient (CLI) | payer OTHER | LOC: MMPC 11:11 | DX: I26.99 Other pulmonary embolism without acute cor pulmonale (principal); K21.9 Gastro-esophageal reflux disease without esophagitis; E78.5 Hyperlipidemia, unspecified; J44.9 Chronic obstructive pulmonary disease, unspecified; E11.9 Type 2 diabetes mellitus without complications; I10 Essential (primary) hypertension; Z98.890 Other specified postprocedural states; K81.9 Cholecystitis, unspecified | CPT/HCPCS: 99213; G0463 ==

== ENCOUNTER → 2017-05-22 | Outpatient (CLI) | payer OTHER | LOC: MOB LAB 07:51 | PROVIDERS: ATTEND Surgery | DX: C49.3 Malignant neoplasm of connective and soft tissue of thorax (principal) | CPT/HCPCS: 36415; 82565; 84520 ==